=== PATIENT | male | born 1940 | race Caucasian/White ===

== ENCOUNTER 2017-05-26 07:53 | Day surgery (SDC) | payer MEDICARE ==
[~2017-05-26 07:53] MED LIST: RINGER'S SOLUTION,LACTATED 1,000 ML IV PRN
[2017-05-26] MEDS ORDERED: RINGER'S SOLUTION,LACTATED 1,000 ML IV ONE (08:06)
--- NOTE | 2017-05-26 09:02 | OR ---
Operative Report - Dictated Report Narrative: Date: 05/26/2017 Diagnosis: Screening colonoscopy Postoperative diagnosis: Internal hemorrhoid left middle column, pancolonic diverticulosis Procedure: Total colonoscopy Anesthesia: MAC per DATE PULLER EBL: None Specimens: None After informed consent and appropriate sedation the patient was placed in the left lateral decubitus position. Flexible fiberoptic video colonoscope was introduced and advanced under direct vision without difficulty to the cecum. The usual landmarks were identified. Preparation was excellent and excellent views were obtained. The findings were pancolonic diverticulosis otherwise normal cecum, ascending colon, hepatic flexure, transverse colon, splenic flexure, descending colon, sigmoid colon, and rectum. External inspection of the anus revealed a internal hemorrhoid in the left mid column. The mucosal collar, vasculature, and texture were normal throughout. No suspicious masses were seen. The patient tolerated the procedure well without apparent complications was discharged from the endoscopy suite in stable condition.
[2017-05-26 09:59] VITALS: BP 111/69
== END 2017-05-26 07:54 | disposition home or self-care (01) ==
LOC: AMB 07:53
PROVIDERS: ATTEND Specialist
PROC: 0DJD8ZZ Inspection of Lower Intestinal Tract, Via Natural or Artificial Opening Endoscopic (ICD-10-PCS; principal; 2017-05-26)
DX: Z12.11 Encounter for screening for malignant neoplasm of colon (principal); K57.30 Diverticulosis of large intestine without perforation or abscess without bleeding; K64.8 Other hemorrhoids; I10 Essential (primary) hypertension; E78.5 Hyperlipidemia, unspecified; Z87.891 Personal history of nicotine dependence